=== PATIENT | male | born 1955 | race Caucasian/White ===

== ENCOUNTER 2023-07-12 06:40 | Observation (INO) | payer MEDICARE, OTHER ==
[2023-07-07 14:14] LABS: BASOPHILS % (AUTO) 0.5 % (0-1); EOSINOPHILS % (AUTO) 0.3 % (0-6); LYMPHOCYTES # (AUTO) 1.4 X10'3 (1.1-4.8); LYMPHOCYTES % (AUTO) 21.9 % (21-51); MEAN CORPUSCULAR HEMOGLOBIN 29.9 PG (27.0-31.0); MEAN CORPUSCULAR VOLUME 87.8 FL (78-98); MEAN PLATELET VOLUME 6.9 FL (7.4-10.4); MONOCYTES # (AUTO) 0.5 X10'3 (0-0.9); MONOCYTES % (AUTO) 7.5 % (2-12); NEUTROPHILS # (AUTO) 4.4 X10'3 (1.8-7.7); NEUTROPHILS % (AUTO) 69.8 % (42-75); PRE OP HEMATOCRIT 43.6 % (42.0-52.0); PRE OP HEMOGLOBIN 14.8 g/dL (14.0-17.9); PRE OP PLATELET COUNT 228 X10'3 (140-440); PRE OP WHITE BLOOD COUNT 6.4 10'3 (4.8-10.8); RED BLOOD COUNT 4.97 X10'6 (4.70-6.10); RED CELL DISTRIBUTION WIDTH 13.4 % (11.5-14.5)
[2023-07-07 14:28] LABS: ALBUMIN 3.6 G/DL (3.4-5.0); ALBUMIN/GLOBULIN RATIO 0.9 (1.1-1.5); ALKALINE PHOSPHATASE 101 IU/L (46-116); BLOOD UREA NITROGEN 13 MG/DL (7-18); BUN/CREATININE RATIO 16.5 (10.0-20.0); CALCIUM 8.4 MG/DL (8.5-10.1); CHLORIDE 104 MMOL/L (99-107); CREATININE 0.79 MG/DL (0.60-1.10); PRE OP ALT 31 U/L (30-65); PRE OP ANION GAP 6 (8-16); PRE OP AST 19 U/L (10-37); PRE OP BILIRUB, TOTAL 0.3 MG/DL (0.0-1.0); PRE OP GLUCOSE 108 MG/DL (70-104); PRE OP SODIUM 138 MMOL/L (135-145); TOTAL CARBON DIOXIDE 28.2 MMOL/L (24-32); TOTAL PROTEIN 7.5 G/DL (6.4-8.2); eGFR > 90 ML/MIN
[2023-07-07 15:35] LABS: PRE OP POTASSIUM 3.2 MMOL/L (3.4-5.1)
[~2023-07-12] VITALS: Ht 170.2 cm; Wt 62.4 kg
[2023-07-12] VITALS (34 sets, daily range): BP systolic 120–171; BP diastolic 67–92; PULSE 72–107; RESP 12–20; TEMP 96.6–99.2; O2SAT 91–100
[~2023-07-12 06:40] MED LIST: ESOM40CA PO; cefazolin 2gm/D5W 100mL 100 ML IV ONE; famotidine 20mg tablet PO ONE; ringers solution, lacted 1,000 ML IV SCH
[2023-07-12] MEDS ORDERED: fentaNYL/PF 50MCG/1 ML 2ML syringe ONE ×2 (07:09→10:27)
[2023-07-12] MEDS ORDERED: MIDAZolam 1 MG/ML 5ML VIAL ONE (07:10)
[2023-07-12] MEDS ORDERED: LIDOcaine Viscous 15ml cup ONE (07:41)
[2023-07-12 09:37] LABS: ISTAT ANION GAP 10 (8-12); ISTAT BUN 12 mg/dL (7-18); ISTAT CL 105 mmol/L (99-107); ISTAT CREATININE 0.6 mg/dL (0.8-1.3); ISTAT GLUCOSE 102 mg/dL (70-104); ISTAT HGB 13.6 g/dl (14.0-17.9); ISTAT Hct 40 %PCV (42-52); ISTAT IONIZED CALCIUM 1.14 mmol/L (1.03-1.32); ISTAT K 3.4 mmol/L (3.5-5.1); ISTAT NA 143 mmol/L (135-145); ISTAT TOTAL CO2 28 mmol/L (24-32); ISTAT eGFR > 90 ML/MIN
[2023-07-12] MEDS ORDERED: BUPIVAcaine/PF 2.5mg/ml (0.25%) 10ml vial ONE (10:19)
[2023-07-12] MEDS ORDERED: LIDOcaine 1% 30ml preserv. free vial ONE (10:19)
[2023-07-12] MEDS ORDERED: rocuronium 10mg/ml inj IV ONE (10:27)
[2023-07-12] MEDS ORDERED: propofol inj 20 ML IV ONE (10:27)
[2023-07-12] MEDS ORDERED: midazolam 1 mg/ML 2ml injection ONE (10:27)
[2023-07-12] MEDS ORDERED: sevoflurane 250ml liquid IH ONE (10:28)
[2023-07-12] MEDS ORDERED: LIDOcaine 1% 30ml preserv. free vial IJ ONE (11:05)
[2023-07-12] MEDS ORDERED: BUPIVAcaine/PF 2.5mg/ml (0.25%) 10ml vial IJ ONE (11:05)
[2023-07-12] MEDS ORDERED: meperidine/PF 25mg/ml syringe IV PRN ×3 (11:20)
[2023-07-12] MEDS ORDERED: proCHLORperazine 10 MG/2 ml inj IV PRN (11:20)
[2023-07-12] MEDS ORDERED: ondansetron/PF 4mg/2ml inj IV PRN ×2 (11:20→12:35)
[2023-07-12] MEDS ORDERED: morphine 4 MG/ML inj SYRINge IV PRN (11:20)
[2023-07-12] MEDS ORDERED: morphine 2 MG/ML inj. syringe IV PRN (11:20)
[2023-07-12] MEDS ORDERED: ondansetron/PF 4mg/2ml inj ONE (12:14)
[2023-07-12] MEDS ORDERED: dexamethasone sod phosphate 4mg/ml inj. ONE (12:14)
[2023-07-12] MEDS ORDERED: acetaminophen 1,000mg/100ml IV 100 ML IV ONE (12:15)
[2023-07-12] MEDS ORDERED: glycopyrrolate 0.2mg/ml inj ONE (12:27)
[2023-07-12] MEDS ORDERED: neostigmine methylsulfate 1 MG/ML 10ml vial ONE (12:27)
[2023-07-12] MEDS ORDERED: HYDROmorph/NS 0.2 mg/ml PCA 100 ML IV SCH (12:35)
[2023-07-12] MEDS ORDERED: naloxone 0.4 mg/ml inj IV PRN (12:35)
[2023-07-12] MEDS: ringers solution, lacted 1,000 ML IV SCH ×3 (12:39→16:58)
[2023-07-12] MEDS: HYDROmorph/NS 0.2 mg/ml PCA 100 ML IV SCH ×5 (13:16→23:00)
[2023-07-12] MEDS: normal saline 1000ml 1,000 ML IV SCH ×2 (15:39→16:58)
[2023-07-12] MEDS ORDERED: LidoCAINE 2% Topical Jelly 11mL syringe TOP ONE (20:40)
[2023-07-13] MEDS: HYDROmorph/NS 0.2 mg/ml PCA 100 ML IV SCH ×4 (01:00→07:00)
[2023-07-13 02:26] VITALS: BP 128/61; PULSE 99; RESP 16; TEMP 97.3; O2SAT 94
[2023-07-13] MEDS: normal saline 1000ml 1,000 ML IV SCH (02:35)
[2023-07-13 06:00] VITALS: BP 129/67; PULSE 81; RESP 18; TEMP 98.9; O2SAT 95
[2023-07-13] MEDS ORDERED: enoxaparin 40mg/0.4ml syringe SQ SCH (08:00)
[2023-07-13 11:00] VITALS: BP 139/64; PULSE 81; RESP 16; TEMP 98.5; O2SAT 94
[2023-07-13] MEDS ORDERED: oxyCODONE/APAP 5-325mg tablet PO ONE (11:15)
[2023-07-13] MEDS ORDERED: oxyCODONE/APAP 5-325mg tablet PO PRN (11:15)
[2023-07-13] MEDS ORDERED: PER5325T PO (11:18)
[2023-07-13] MEDS ORDERED: CADD PCA waste documentation MC SCH (13:05)
[2023-07-13 14:34] VITALS: RESP 14
== END 2023-07-13 17:40 | disposition home or self-care (01) ==
LOC: PAS 06:40 → PAS IN 12:36 → ORTHO 4S 16:00
PROVIDERS: ADMIT Surgery; ATTEND Surgery
DX: K44.9 Diaphragmatic hernia without obstruction or gangrene (principal); K21.00 Gastro-esophageal reflux disease with esophagitis, without bleeding; K25.9 Gastric ulcer, unspecified as acute or chronic, without hemorrhage or perforation; K29.70 Gastritis, unspecified, without bleeding; M19.90 Unspecified osteoarthritis, unspecified site; E11.9 Type 2 diabetes mellitus without complications; Z79.899 Other long term (current) drug therapy
CPT/HCPCS: 36415; 43239; 43282; 71045; 80047; 80053; 85025; 93005; 96365; 96366; 96375; C1781; G0378; J0131; J0690; J0780; J1100; J1170; J2175; J2250; J2270; J2405; J2704; J2710; J3010; J3490; J7030; J7120; 99152; A4314; A4615; A4618